=== PATIENT | female | born 1930 | race Caucasian/White ===

== ENCOUNTER 2018-09-10 17:50 | Emergency (ER) | payer MEDICARE, OTHER ==
[2018-09-10 18:10] LABS: ABSOLUTE EOSINOPHILS # (AUTO) 0.1 10^3/uL (0.0-0.6); ABSOLUTE LYMPHOCYTES (AUTO) 0.6 10^3/uL (0.5-4.7); ABSOLUTE NEUT (AUTO) 2.5 10^3/uL (1.7-8.2); BASOPHILS % (AUTO) 0.3 % (0-2); EOSINOPHILS % (AUTO) 2.8 % (0-6); HEMATOCRIT 33.5 % (36.0-47.0); HEMOGLOBIN 11.4 g/dL (12.0-15.5); LYMPHOCYTES % (AUTO) 17.9 % (13-45); MEAN CORPUSCULAR HEMOGLOBIN 32.5 pg (27.0-33.4); MEAN CORPUSCULAR HGB CONC 33.9 g/dL (32.0-36.0); MEAN CORPUSCULAR VOLUME 96 fl (80-97); MONOCYTES % (AUTO) 0.9 % (3-13); PLATELET COUNT 221 10^3/uL (150-450); RED BLOOD COUNT 3.51 10^6/uL (3.72-5.28); RED CELL DISTRIBUTION WIDTH 12.2 % (11.5-14.0); SEGMENTED NEUTROPHILS % (AUTO) 78.1 % (42-78); TOTAL CELLS COUNTED % (AUTO) 100 %; WHITE BLOOD COUNT 3.3 10^3/uL (4.0-10.5)
[2018-09-10 18:30] LABS: ALANINE AMINOTRANSFERASE 60 U/L (9-52); ALBUMIN 4.2 g/dL (3.5-5.0); ALKALINE PHOSPHATASE 86 U/L (38-126); ANION GAP 15 (5-19); ASPARTATE AMINO TRANSFERASE 251 U/L (14-36); BILIRUBIN,DIRECT 1.5 mg/dL (0.0-0.4); BILIRUBIN,TOTAL 1.8 mg/dL (0.2-1.3); BLOOD UREA NITROGEN 51 mg/dL (7-20); CALCIUM 9.4 mg/dL (8.4-10.2); CARBON DIOXIDE 27 mmol/L (22-30); CHLORIDE 100 mmol/L (98-107); GLUCOSE 114 mg/dL (75-110); LIPASE 523.1 U/L (23-300); POTASSIUM 4.6 mmol/L (3.6-5.0); SODIUM 141.9 mmol/L (137-145); TOTAL PROTEIN 7.6 g/dL (6.3-8.2)
[2018-09-10] MEDS ORDERED: RINGERS SOLUTION,LACTATED 1,000 ML IV ONE ×2 (18:40→22:59)
[2018-09-10 18:45] LABS: APPEARANCE,URINE CLEAR; BILIRUBIN,URINE NEGATIVE (NEGATIVE); COLOR,URINE YELLOW; GLUCOSE, URINE NEGATIVE (NEGATIVE); KETONES,URINE NEGATIVE (NEGATIVE); LEUKOCYTE ESTERASE,URINE NEGATIVE (NEGATIVE); NITRITE,URINE NEGATIVE (NEGATIVE); PROTEIN,URINE NEGATIVE (NEGATIVE); URINE SPECIFIC GRAVITY 1.009; UROBILINOGEN,URINE NEGATIVE mg/dL (<2.0)
--- NOTE | 2018-09-10 19:09 | RADIOLOGY REPORT (SQ) ---
EXAM DESCRIPTION: CHEST SINGLE VIEW COMPLETED DATE/TIME: 09/10/2018 7:00 pm REASON FOR STUDY: fever COMPARISON: 10/20/2013 EXAM PARAMETERS: NUMBER OF VIEWS: One view. TECHNIQUE: Single frontal radiographic view of the chest acquired. RADIATION DOSE: NA LIMITATIONS: None. FINDINGS: LUNGS AND PLEURA: No opacities, masses or pneumothorax. No pleural effusion. MEDIASTINUM AND HILAR STRUCTURES: No masses. Contour normal. HEART AND VASCULAR STRUCTURES: Borderline heart size. No pulmonary edema. BONES: No acute findings. HARDWARE: None in the chest. OTHER: No other significant finding. IMPRESSION: Borderline cardiomegaly without pulmonary edema. TECHNICAL DOCUMENTATION: JOB ID: [id number] [employer]- All Rights Reserved Reading location - IP/workstation name: [email or web address]
[2018-09-10 19:36] LABS: VENOUS BLOOD BASE EXCESS 0.7 mmol/L; VENOUS BLOOD HCO3 26.3 mmol/L (20-32); VENOUS BLOOD PCO2 46.3 mmHg (35-63); VENOUS BLOOD PH 7.37 (7.30-7.42)
[2018-09-10] MEDS ORDERED: ACETAMINOPHEN 325 MG TABLET PO ONE (19:55)
--- NOTE | 2018-09-10 19:57 | ER Document Report ---
ED General - General Chief Complaint: Nausea/Vomiting Stated Complaint: FEVER Time Seen by Provider: 09/10/18 18:36 Notes: Patient is an 87-year-old female with a past medical history of hypertension, hyperlipidemia, status post cholecystectomy in the remote past who presents with fever, rigors, nausea and vomiting. Apparently these symptoms started abruptly just prior to arrival. No history of similar symptoms in the past. She denies any abdominal pain. She has not seen her general doctor regarding today's concerns. Nothing improves or worsens her symptoms. She denies any shortness of breath, headache, neck pain but states that she has had some nonproductive cough. TRAVEL OUTSIDE OF THE [place] IN LAST 30 DAYS: No - Related Data Allergies/Adverse Reactions: Penicillins Allergy (Intermediate, Verified 10/05/13 16:07) hives and itch Past Medical History - General Information source: Patient - Social History Smoking Status: Never Smoker Chew tobacco use (# tins/day): No Frequency of alcohol use: None Drug Abuse: None Lives with: Family Family History: Reviewed & Not Pertinent Patient has suicidal ideation: No Patient has homicidal ideation: No - Past Medical History Cardiac Medical History: Reports: Hx Hypercholesterolemia, Hx Hypertension Denies: Hx Atrial Fibrillation, Hx Congestive Heart Failure, Hx Coronary Artery Disease, Hx Heart Attack, Hx Peripheral Vascular Disease, Hx Heart Murmur Pulmonary Medical History: Denies: Hx Asthma Neurological Medical History: Denies: Hx Cerebrovascular Accident, Hx Seizures Renal/ Medical History: Reports: Hx Kidney Stones - ESWL x 5, cysto with stone basket extraction 1982. Denies: Hx End Stage Renal Disease, Hx Peritoneal Dialysis Malignancy Medical History: Denies: Hx Leukemia GI Medical History: Reports: Hx Ulcer - Dx'ed . Denies: Hx Crohn's Disease, Hx Gastroesophageal Reflux Disease, Hx Hepatitis, Hx Hiatal Hernia, Hx Irritable Bowel, Hx Liver Failure, Hx Pancreatitis Musculoskeletal Medical History: Reports Hx Arthritis, Denies Hx Fibromyalgia, Denies Hx Muscular Dystrophy Psychiatric Medical History: Reports: Hx Depression Denies: Hx Bipolar Disorder, Hx Post Traumatic Stress Disorder, Hx Schizophrenia Traumatic Medical History: Denies: Hx Fractures Infectious Medical History: Denies: Hx Hepatitis, Hx HIV Past Surgical History: Reports: Hx Appendectomy - incidental with JERAMY BSO 1967, Hx Cholecystectomy - open martina , Hx Hysterectomy - JERAMY BSO 1967. Denies : Hx Bowel Surgery, Hx Section, Hx Colostomy, Hx Coronary Artery Bypass Graft, Hx Gastric Bypass Surgery, Hx Herniorrhaphy, Hx Mastectomy, Hx Open Heart Surgery, Hx Pacemaker, Hx Tonsillectomy, Hx Tubal Ligation - Immunizations Hx Diphtheria, Pertussis, Tetanus Vaccination: Yes - Tetanus in 08/2013 Hx Pneumococcal Vaccination: 11/16/08 Review of Systems - Review of Systems Notes: Constitutional: Positive for fever. HENT: Negative for sore throat. Eyes: Negative for visual changes. Cardiovascular: Negative for chest pain. Respiratory: Negative for shortness of breath.Positive for cough Gastrointestinal: Positive for nausea and vomiting Genitourinary: Negative for dysuria. Musculoskeletal: Negative for back pain. Skin: Negative for rash. Neurological: Negative for headaches, weakness or numbness. 10 point ROS negative except as marked above and in HPI. Physical Exam - Vital signs Vitals: Temp Resp BP Pulse Ox 99.5 F 23 H 119/43 L 93 09/10/18 18:02 09/10/18 18:02 09/10/18 18:02 09/10/18 18:02 Interpretation: Tachypneic Notes: PHYSICAL EXAMINATION: GENERAL: Elderly, in no acute distress HEAD: Atraumatic, normocephalic. EYES: Pupils equal round and reactive to light, extraocular movements intact, sclera anicteric, conjunctiva are normal. ENT: nares patent, oropharynx clear without exudates. Moderately dry mucous membranes. NECK: Normal range of motion, supple without lymphadenopathy LUNGS: Breath sounds clear to auscultation bilaterally and equal. No wheezes rales or rhonchi. HEART: Regular tachycardia without murmurs ABDOMEN: Soft, nontender, normoactive bowel sounds. No guarding, no rebound. No masses appreciated. EXTREMITIES: Normal range of motion, no pitting or edema. No cyanosis. NEUROLOGICAL: No focal neurological deficits. Moves all extremities spontaneously and on command. PSYCH: Normal mood, normal affect. SKIN: Warm, Dry, normal turgor, no rashes or lesions noted. Course - Re-evaluation Re-evalutation: 09/10/18 19:56 Patient presents with fever, rigors, nausea and vomiting which have currently resolved. Patient has no abdominal pain by complaint or on assessment. She currently denies any complaint of any kind other than still feeling somewhat chilled. Her initial laboratories are notable for mild LFT derangements, elevated lipase although the patient has had a cholecystectomy over 30 years ago making the probability of a choledocholithiasis or ascending cholangitis extremely unlikely. Given the patient's advanced age with history of fever and vomiting will proceed with a CT of the abdomen and pelvis. Will also obtain a flu swab as the patient has had a cough. Both her urinalysis and chest x-ray are clear. 09/10/18 22:[address] scan of the abdomen and pelvis does show dilation of the common bile duct with a mass within the common bile duct worrisome for possible stricture or malignancy. The patient continues to complain of chills as well as nausea but continues to deny abdominal pain. Given that she has a low white blood cell count has had a fever, will start ceftriaxone and metronidazole for empiric coverage. She has been made n.p.o. Ongoing fluid resuscitation. I have contacted [facility] for transfer as the patient will require ERCP. Results of the CT scan have been discussed with the family who is in agreement with transfer. 09/10/18 23:[address] I have spoken to Dr. Redmond from [facility] who has accepted the patient for transfer. - Vital Signs Vital signs: Temp Pulse Resp BP Pulse Ox 99.0 F 20 114/44 L 91 L 09/10/18 19:25 09/11/18 00:29 09/11/18 00:00 09/11/18 00:29 - Laboratory Result Diagrams: 09/10/18 17:35 09/10/18 17:35 Laboratory results interpreted by me: 09/10/18 09/10/18 09/10/18 17:35 17:35 18:33 WBC 3.3 L RBC 3.51 L Hgb 11.4 L Hct 33.5 L Seg Neutrophils % 78.1 H Monocytes % 0.9 L Absolute Monocytes 0.0 L BUN 51 H Creatinine 1.66 H Est GFR ( Amer) 36 L Est GFR (Non-Af Amer) 29 L Glucose 114 H Total Bilirubin 1.8 H Direct Bilirubin 1.5 H AST 251 H ALT 60 H Lipase 523.1 H Urine Blood SMALL H - Diagnostic Test Radiology reviewed: Reports reviewed Discharge - Discharge Clinical Impression: Common bile duct obstruction Sepsis Qualifiers: Sepsis type: sepsis due to unspecified organism Qualified Code(s): A41.9 - Sepsis, unspecified organism Nausea and vomiting Qualifiers: Vomiting type: unspecified Vomiting Intractability: non-intractable Qualified Code(s): R11.2 - Nausea with vomiting, unspecified Condition: Fair Disposition: [facility] Referrals: MIK ELLIOTT MD [Primary Care Provider] - Follow up as needed
[2018-09-10 20:59] LABS: A TYPE INFLUENZA AG NEGATIVE (NEGATIVE); B INFLUENZA AG NEGATIVE (NEGATIVE)
--- NOTE | 2018-09-10 21:16 | RADIOLOGY REPORT (SQ) ---
CT ABDOMEN PELVIS WITH IV CONTRAST HISTORY: Abdominal pain, vomiting. COMPARISON: None. TECHNIQUE: CT scan of the abdomen and pelvis with contrast. This exam was performed according to our departmental dose-optimization program, which includes automated exposure control, adjustment of the mA and/or kV according to patient size and/or use of iterative reconstruction technique. FINDINGS: Lung bases are clear. No pleural or pericardial effusions. Liver, gallbladder, spleen, pancreas, and adrenal glands are unremarkable. Status post cholecystectomy. Mild intrahepatic and CBD dilatation. There appears to be soft tissue density within the common bile duct. Bilateral renal cysts the largest measuring 10.9 cm and the left kidney. Bilateral chunky calcification in the kidneys with the largest measuring 1.3 cm in the right kidney and 1 cm in the left kidney. Prior hysterectomy is noted. No bowel obstruction. Appendix is not seen. No free air or free fluid. Normal caliber aorta with atherosclerotic calcifications. Mild wedging of T12 and L5 which may be degenerative or age-indeterminate compression fracture. IMPRESSION: Status post cholecystomy with mild intrahepatic and CBD dilatation. There appears to be soft tissue density within the CBD. Correlate with prior clinical history and consider direct visualization to exclude intraluminal mass or blood clot. Bilateral nonobstructing coarse calcifications in the kidneys. No obstructive uropathy. Mild wedging of T12 and L5 which may be degenerative or age-indeterminate compression fracture.
[2018-09-10] MEDS ORDERED: CEFTRIAXONE INJ 1000 MG VIAL IV ONE (21:45)
[2018-09-10] MEDS ORDERED: METRONIDAZOLE 500 MG/NS RTU 500 MG/100 ML RTUPB IV ONE (21:45)
[2018-09-11 01:13] VITALS: BP 104/40
== END 2018-09-11 01:19 | disposition short-term general hospital (02) ==
LOC: ER 17:50
DX: K83.1 Obstruction of bile duct (principal); A41.9 Sepsis, unspecified organism; R11.2 Nausea with vomiting, unspecified; R50.9 Fever, unspecified; I10 Essential (primary) hypertension; E78.2 Mixed hyperlipidemia; Z90.49 Acquired absence of other specified parts of digestive tract; Z88.0 Allergy status to penicillin
CPT/HCPCS: 99285; 96361; 96365; 96367; 36415; 87040; 83690; 85025; 87077; 80053; 81001; 87186; 82803; 83605; 87804; 71045; 74177; A9270; J0696; J7120

== ENCOUNTER 2019-10-08 12:39 | Emergency (ER) | payer MEDICARE, OTHER ==
--- NOTE | 2019-10-08 13:42 | ER Document Report ---
ED Fall - General Chief Complaint: Fall Stated Complaint: FALL, ELBOW PAIN Time Seen by Provider: 10/08/19 13:26 Primary Care Provider: ELIZABETH GODDARD PA-C [Primary Care Provider] - Follow up as needed Mode of Arrival: Medic Information source: Patient, Relative, Emergency Med Personnel, [facility] Records Notes: This 88-year-old female patient was brought to the emergency room by EMS after suffering a fall at home. The patient lives in a converted garage room with an adjacent restroom. The relative was upstairs when he heard her yell out, he came down to find her on the floor between a door frame with her head tucked. She reports she has hit her head. He noticed a deformity to the left elbow. There was no loss of consciousness. She does suffer occasional falls, despite using a walker. The patient did complain of pain to her right hip when palpated, but the family reports that is a chronic finding and may not indicate any new injury. The patient is on chronic pain management and takes Percocet 7.5 mg every 4 hours. When the patient returned from x-rays and CTs, she was interviewed and examined. She states she hit her left forehead, but it does not hurt at all. She states the only thing that hurts is her elbow. She was due to take her Percocet dose about 1 hour ago so her pain is very severe. TRAVEL OUTSIDE OF THE [place] IN LAST 30 DAYS: No - Related data Allergies/Adverse Reactions: Penicillins Allergy (Intermediate, Verified 10/05/13 16:07) hives and itch Home Medications: Losartan, Symproic, Citalopram, Furosemide, Vitamin D, Metoprolol, Annia, B-12, Percocet, Gabapentin Past Medical History - General Information source: Patient, Relative, Emergency Med Personnel, [facility] Records - Social History Smoking Status: Never Smoker Cigarette use (# per day): No Chew tobacco use (# tins/day): No Smoking Education Provided: No Frequency of alcohol use: None Drug Abuse: None Lives with: Family Family History: Reviewed & Not Pertinent Patient has suicidal ideation: No Patient has homicidal ideation: No - Past Medical History Cardiac Medical History: Reports: Hx Hypercholesterolemia, Hx Hypertension Renal/ Medical History: Reports: Hx Kidney Stones - ESWL x 5, cysto with stone basket extraction 1982 GI Medical History: Reports: Hx Ulcer - Dx'ed Musculoskeletal Medical History: Reports Hx Arthritis Psychiatric Medical History: Reports: Hx Depression Past Surgical History: Reports: Hx Appendectomy - incidental with JERAMY BSO 1967, Hx Cholecystectomy - open martina , Hx Hysterectomy, Hx Orthopedic Surgery - Bilateral total knees - Immunizations Hx Diphtheria, Pertussis, Tetanus Vaccination: Yes - Tetanus in 08/2013 Hx Pneumococcal Vaccination: 11/16/08 Review of Systems - Review of Systems Constitutional: No symptoms reported EENT: No symptoms reported Cardiovascular: No symptoms reported Respiratory: No symptoms reported Gastrointestinal: No symptoms reported - Family reports that she has not had constipation problems since she started taking the Symproic. Genitourinary: No symptoms reported Female Genitourinary: Post menopausal Musculoskeletal: Back pain, Joint pain Skin: No symptoms reported Hematologic/Lymphatic: No symptoms reported Neurological/Psychological: No symptoms reported Physical Exam - Vital signs Vitals: Temp Pulse Resp BP Pulse Ox 98.6 F 61 16 157/52 H 100 10/08/19 13:00 10/08/19 13:00 10/08/19 13:00 10/08/19 13:00 10/08/19 13:00 - General General appearance: Alert, Anxious In distress: Moderate - HEENT Head: Normocephalic, Atraumatic - No bruising, abrasions, or swelling or tenderness areas are found on the scalp. Hello Eyes: Normal Pupils: PERRL - Respiratory Respiratory status: No respiratory distress Breath sounds: Normal - Cardiovascular Rhythm: Regular Heart sounds: Normal auscultation Murmur: No - Abdominal Inspection: Normal Bowel sounds: Normal Tenderness: Nontender - Back Back: Tender - Patient has chronic back pain - Extremities General upper extremity: Other - Left elbow is grossly deformed and exquisitely tender. There is good capillary refill and sensation at the fingertips. General lower extremity: Other - Right lower leg has minor skin tears. - Neurological Neuro grossly intact: Yes - Psychological Associated symptoms: Normal affect, Normal mood - Skin Skin Temperature: Warm Skin Moisture: Dry Skin Color: Normal Course - Vital Signs Vital signs: Temp Pulse Resp BP Pulse Ox 98.6 F 64 16 175/60 H 96 10/08/19 13:00 10/08/19 16:10 10/08/19 15:47 10/08/19 15:55 10/08/19 15:53 - Diagnostic Test Radiology reviewed: Image reviewed, Reports reviewed - Left elbow x-ray shows a supracondylar fracture with shaft width medial displacement of the proximal humerus. - EKG Interpretation by Me EKG shows normal: Sinus rhythm, Berry, Intervals, QRS Complexes, ST-T Waves Rate: Normal - 65 Rhythm: Other - Accelerated junctional escape When compared to previous EKG there are: Changes noted - Consults Dr. Alba Time consulted: 16:43 Consulted provider: other - Will accept on hospitalist service with ortho consult - Transfer of Care Care transferred to following provider: Dr. Schneider Notes: 10/08/19 16:57 Patient is pending transfer to [facility]. She is presently waiting for a bed assignment. She may need additional pain medication prior to transport. Discharge - Discharge Clinical Impression: Supracondylar fracture of left humerus Qualifiers: Encounter type: initial encounter Fracture type: closed Qualified Code(s): S42.412A - Displaced simple supracondylar fracture without intercondylar frac ture of left humerus, initial encounter for closed fracture Condition: Stable Disposition: [facility] Referrals: ELIZABETH GODDARD PA-C [Primary Care Provider] - Follow up as needed
--- NOTE | 2019-10-08 13:45 | RADIOLOGY REPORT (SQ) ---
EXAM DESCRIPTION: ELBOW LEFT AP/LATERAL COMPLETED DATE/TIME: 10/08/2019 1:28 pm REASON FOR STUDY: fall COMPARISON: None. NUMBER OF VIEWS: Two views. TECHNIQUE: AP and lateral radiographic images acquired of the left elbow. LIMITATIONS: None. FINDINGS: MINERALIZATION: Osteopenia. BONES: There are oblique, comminuted fractures of the supracondylar left humerus and lateral epicondy le. JOINT: No effusion. SOFT TISSUES: No soft tissue swelling. No foreign body. OTHER: No other significant finding. IMPRESSION: There are oblique, comminuted fractures of the supracondylar left humerus and lateral ep icondyle. TECHNICAL DOCUMENTATION: JOB ID: [id number] [employer]- All Rights Reserved Reading location - IP/workstation name: [email or web address]
--- NOTE | 2019-10-08 13:46 | RADIOLOGY REPORT (SQ) ---
EXAM DESCRIPTION: TIBIA FIBULA RIGHT COMPLETED DATE/TIME: 10/08/2019 1:28 pm REASON FOR STUDY: pain s/p fall COMPARISON: None. NUMBER OF VIEWS: Two views. TECHNIQUE: Two radiographic images acquired of the right tibia and fibula to include the knee and an kle in at least one projection. LIMITATIONS: None. FINDINGS: MINERALIZATION: Osteopenia. BONES: No acute fracture or dislocation. No worrisome bone lesions. SOFT TISSUES: No obvious swelling or foreign body. OTHER: Partially imaged right knee total arthroplasty. IMPRESSION: Osteopenia. No fracture or dislocation of the right tibia or fibula. TECHNICAL DOCUMENTATION: JOB ID: [id number] [employer]- All Rights Reserved Reading location - IP/workstation name: [email or web address]
--- NOTE | 2019-10-08 13:48 | RADIOLOGY REPORT (SQ) ---
EXAM DESCRIPTION: PELVIS AP COMPLETED DATE/TIME: 10/08/2019 1:28 pm REASON FOR STUDY: pain s/p fall COMPARISON: None. NUMBER OF VIEWS: One view TECHNIQUE: AP Pelvis LIMITATIONS: None. FINDINGS: MINERALIZATION: Osteopenia. HIPS: No acute fracture or dislocation. No worrisome bone lesions. PELVIS AND SACRUM: No acute fracture or dislocation. No worrisome bone lesions. OTHER: Incidental note of a large calculus projecting over the inferior pole of the right kidney. IMPRESSION: 1. Osteopenia. No displaced fracture of the pelvis, sacrum, or bilateral proximal femur s. Please note that plain radiographs are significantly insensitive for fractures in the setting of osteopenia. Consider MRI to more sensitively evaluate if fracture is suspected. 2. Incidental note of right nephrolithiasis. COMMENT: Pelvic fractures are often occult on plain radiographs. If strong clinical suspicion for f racture, recommend CT or MR. TECHNICAL DOCUMENTATION: JOB ID: [id number] [employer]- All Rights Reserved Reading location - IP/workstation name: [email or web address]
--- NOTE | 2019-10-08 13:59 | RADIOLOGY REPORT (SQ) ---
EXAM DESCRIPTION: CT HEAD WITHOUT COMPLETED DATE/TIME: 10/08/2019 1:42 pm REASON FOR STUDY: fall COMPARISON: 10/19/2013 TECHNIQUE: Axial images acquired through the brain without intravenous contrast. Images reviewed wi th bone, brain and subdural windows. Additional sagittal and coronal reconstructions were generated. Images stored on PACS. All CT scanners at this facility use dose modulation, iterative reconstruction, and/or weight based d osing when appropriate to reduce radiation dose to as low as reasonably achievable (ALARA). [facility]: Dose Right [facility]: CareDose [facility]: Dose Right [facility]: Teradose 4D [facility]: Smart This Week In RADIATION DOSE: CT Rad equipment meets quality standard of care and radiation dose reduction techniq ues were employed. CTDIvol: 53.2 mGy. DLP: 1283 mGy-cm.mGy. LIMITATIONS: None. FINDINGS: VENTRICLES: Prominent. CEREBRUM: No masses. No hemorrhage. No midline shift. Areas of low density in the white matter mos t likely due to chronic micro-vascular ischemic change. No evidence for acute infarction. CEREBELLUM: No masses. No hemorrhage. No alteration of density. No evidence for acute infarction. EXTRAAXIAL SPACES: Age-related involutional change. No fluid collections. No masses. ORBITS AND GLOBE: No intra- or extraconal masses. Normal contour of globe without masses. CALVARIUM: No fracture. PARANASAL SINUSES: No fluid or mucosal thickening. SOFT TISSUES: No mass or hematoma. OTHER: No other significant finding. IMPRESSION: CHRONIC CHANGES OF ATROPHY AND MICROVASCULAR ISCHEMIA. NO ACUTE PROCESS. EVIDENCE OF ACUTE STROKE: NO. TECHNICAL DOCUMENTATION: JOB ID: [id number] Quality ID # [id number]: Final reports with documentation of one or more dose reduction techniques (e.g., Au tomated exposure control, adjustment of the mA and/or kV according to patient size, use of iterative reconstruction technique) 2010 [employer]- All Rights Reserved Reading location - IP/workstation name: [email or web address]
--- NOTE | 2019-10-08 14:02 | RADIOLOGY REPORT (SQ) ---
EXAM DESCRIPTION: CT CERVICAL SPINE WITHOUT COMPLETED DATE/TIME: 10/08/2019 1:42 pm REASON FOR STUDY: fall COMPARISON: None. TECHNIQUE: Axial images acquired through the cervical spine without intravenous contrast. Images re viewed with lung, soft tissue and bone windows. Reconstructed coronal and sagittal MPR images review ed. Images stored on PACS. All CT scanners at this facility use dose modulation, iterative reconstruction, and/or weight based d osing when appropriate to reduce radiation dose to as low as reasonably achievable (ALARA). [facility]: Dose Right [facility]: CareDose [facility]: Dose Right [facility]: Teradose 4D [facility]: Smart [employer] RADIATION DOSE: CT Rad equipment meets quality standard of care and radiation dose reduction techniq ues were employed. CTDIvol: 20.6 mGy. DLP: 420 mGy-cm. mGy. LIMITATIONS: None. FINDINGS: ALIGNMENT: Anatomic. MINERALIZATION: Osteopenia. VERTEBRAL BODIES: No fractures or dislocation. DISCS: Moderate multilevel disc degenerative disease and osteophytosis. FACETS, LATERAL MASSES, POSTERIOR ELEMENTS: No fractures. No dislocation. No acute findings. HARDWARE: None in the spine. VISUALIZED RIBS: No fractures. LUNG APICES AND SOFT TISSUES: No significant or acute findings. OTHER: No other significant finding. IMPRESSION: No fracture or static subluxation of the cervical spine. TECHNICAL DOCUMENTATION: JOB ID: [id number] Quality ID # [id number]: Final reports with documentation of one or more dose reduction techniques (e.g., Au tomated exposure control, adjustment of the mA and/or kV according to patient size, use of iterative reconstruction technique) 2010 [employer]- All Rights Reserved Reading location - IP/workstation name: [email or web address]
[2019-10-08] MEDS ORDERED: MORPHINE SULFATE 10 MG/ML INJ IV ONE ×3 (14:03→21:02)
--- NOTE | 2019-10-08 17:19 | EKG REPORT ---
SEVERITY:- ABNORMAL ECG - SINUS RHYTHM FIRST DEGREE AVB : Confirmed by: Tio French MD 08-Oct-2019 17:18:57
[2019-10-08 21:11] VITALS: BP 135/51
== END 2019-10-08 21:11 | disposition short-term general hospital (02) ==
LOC: ER 12:39
DX: S42.412A Displaced simple supracondylar fracture without intercondylar fracture of left humerus, initial encounter for closed fracture (principal); S09.90XA Unspecified injury of head, initial encounter; W18.30XA Fall on same level, unspecified, initial encounter; Y92.009 Unspecified place in unspecified non-institutional (private) residence as the place of occurrence of the external cause; Z88.0 Allergy status to penicillin; E78.00 Pure hypercholesterolemia, unspecified; I10 Essential (primary) hypertension; Z87.442 Personal history of urinary calculi; Z90.710 Acquired absence of both cervix and uterus
CPT/HCPCS: 93005; 73070; 72170; 73590; 70450; 72125; 93010; J2270; 51702; 96374; 96376; 99285

== ENCOUNTER → 2020-04-30 | Outpatient (CLI) | payer MEDICARE, OTHER ==
[2020-04-30 11:07] LABS: ANION GAP 7 (5-19); BLOOD UREA NITROGEN 80 mg/dL (7-20); CALCIUM 9.6 mg/dL (8.4-10.2); CARBON DIOXIDE 32 mmol/L (22-30); CHLORIDE 96 mmol/L (98-107); GLUCOSE 97 mg/dL (75-110); POTASSIUM 4.6 mmol/L (3.6-5.0)
== END ==
LOC: OD 09:52
PROVIDERS: ATTEND Internal Medicine
DX: E87.6 Hypokalemia (principal)
CPT/HCPCS: 36415; 80048

== ENCOUNTER → 2020-06-01 | Outpatient (CLI) | payer MEDICARE, OTHER ==
[2020-06-01 10:28] LABS: ANION GAP 9 (5-19); BLOOD UREA NITROGEN 86 mg/dL (7-20); CALCIUM 9.6 mg/dL (8.4-10.2); CARBON DIOXIDE 31 mmol/L (22-30); CHLORIDE 95 mmol/L (98-107); GLUCOSE 97 mg/dL (75-110); POTASSIUM 4.1 mmol/L (3.6-5.0)
== END ==
LOC: OD 09:10
PROVIDERS: ATTEND Internal Medicine
DX: E87.5 Hyperkalemia (principal)
CPT/HCPCS: 36415; 80048

== ENCOUNTER 2020-07-13 12:23 | Emergency (ER) | payer MEDICARE, OTHER ==
--- NOTE | 2020-07-13 13:03 | ER Document Report ---
ED Medical Screen (RME) - General Chief Complaint: Altered Mental Status Stated Complaint: RIGHT SIDE PAIN Time Seen by Provider: 07/13/20 12:59 Primary Care Provider: JANES AGEE MD [Primary Care Provider] - Follow up as needed Mode of Arrival: Medic Information source: Relative Notes: 89-year-old female presented to ED for altered mental status confusion severe right flank and abdominal pain swelling to the right side of the abdomen. She lives in [facility]. Her daughter states that the nurse at [facility] called her several times today due to her declining status. They called the doctor and he told him to bring her right over to the emergency room. Daughter states that she was diagnosed with stage IV kidney disease and has never had a nephrology consult or exam. She states the patient has been declining and been in severe pain and no one is coming in taking care of this. She states she does not necessarily want dialysis but she wants to know what can be done to make the patient comfortable. She states she will leave her phone number and name on the bedside table for the doctor to converse with her. I have greeted and performed a rapid initial assessment of this patient. A comprehensive ED assessment and evaluation of the patient, analysis of test results and completion of medical decision making process will be conducted by an additional ED providers. TRAVEL OUTSIDE OF THE [place] IN LAST 30 DAYS: No - Related Data Allergies/Adverse Reactions: Penicillins Allergy (Intermediate, Verified 07/13/20 12:58) hives and itch Home Medications: Citalopram. Losartan. Melatonin. Eliquis. Lasix. Metoprolol. Senna. Tylenol. Vitamin D#. Docusate. Potassium Chloride. Gabapentin. Ativan. GlycoLax. Metolazone Past Medical History - Past Medical History Cardiac Medical History: Reports: Hx Hypercholesterolemia, Hx Hypertension Renal/ Medical History: Reports: Hx Kidney Stones - ESWL x 5, cysto with stone basket extraction 1982 GI Medical History: Reports: Hx Ulcer - Dx'ed Musculoskeltal Medical History: Reports Hx Arthritis Psychiatric Medical History: Reports: Hx Depression Past Surgical History: Reports: Hx Appendectomy - incidental with JERAMY BSO 1967, Hx Cholecystectomy - open martina , Hx Hysterectomy, Hx Orthopedic Surgery - Bilateral total knees - Immunizations Hx Diphtheria, Pertussis, Tetanus Vaccination: Yes - Tetanus in 08/2013 Physical Exam - Vital signs Vitals: Temp Pulse Resp BP Pulse Ox 98.6 F 58 L 16 138/48 H 95 07/13/20 12:57 07/13/20 12:57 07/13/20 12:57 07/13/20 12:57 07/13/20 12:57 Course - Vital Signs Vital signs: Temp Pulse Resp BP Pulse Ox 98.6 F 58 L 16 138/48 H 95 07/13/20 12:57 07/13/20 12:57 07/13/20 12:57 07/13/20 12:57 07/13/20 12:57 Doctor's Discharge - Discharge Referrals: JANES AGEE MD [Primary Care Provider] - Follow up as needed
[2020-07-13 13:30] LABS: APPEARANCE,URINE CLEAR; BILIRUBIN,URINE NEGATIVE (NEGATIVE); COLOR,URINE STRAW; GLUCOSE, URINE NEGATIVE (NEGATIVE); KETONES,URINE NEGATIVE (NEGATIVE); LEUKOCYTE ESTERASE,URINE TRACE (NEGATIVE); NITRITE,URINE NEGATIVE (NEGATIVE); PROTEIN,URINE NEGATIVE (NEGATIVE); URINE SPECIFIC GRAVITY 1.009; UROBILINOGEN,URINE NEGATIVE mg/dL (<2.0)
[2020-07-13 13:41] LABS: ABSOLUTE EOSINOPHILS # (AUTO) 0.3 10^3/uL (0.0-0.6); ABSOLUTE LYMPHOCYTES (AUTO) 1.8 10^3/uL (0.5-4.7); ABSOLUTE MONOCYTES (AUTO) 0.6 10^3/uL (0.1-1.4); ABSOLUTE NEUT (AUTO) 3.7 10^3/uL (1.7-8.2); BASOPHILS % (AUTO) 0.6 % (0-2); EOSINOPHILS % (AUTO) 5.3 % (0-6); HEMATOCRIT 33.1 % (36.0-47.0); HEMOGLOBIN 11.4 g/dL (12.0-15.5); MEAN CORPUSCULAR HEMOGLOBIN 31.5 pg (27.0-33.4); MEAN CORPUSCULAR HGB CONC 34.5 g/dL (32.0-36.0); MEAN CORPUSCULAR VOLUME 92 fl (80-97); MONOCYTES % (AUTO) 9.3 % (3-13); PLATELET COUNT 192 10^3/uL (150-450); RED BLOOD COUNT 3.62 10^6/uL (3.72-5.28); RED CELL DISTRIBUTION WIDTH 12.3 % (11.5-14.0); SEGMENTED NEUTROPHILS % (AUTO) 56.8 % (42-78); TOTAL CELLS COUNTED % (AUTO) 100 %; WHITE BLOOD COUNT 6.5 10^3/uL (4.0-10.5)
--- NOTE | 2020-07-13 13:49 | ER Document Report ---
Entered by SANDY DARNELL SCRIBE 07/13/20 1324 Acting as scribe for:LILIAM SUTTON MD ED General - General Chief Complaint: Altered Mental Status Stated Complaint: RIGHT SIDE PAIN Time Seen by Provider: 07/13/20 12:59 Primary Care Provider: JANES AGEE MD [Primary Care Provider] - Follow up in 3-5 days Mode of Arrival: Medic Information source: Patient Cannot obtain history due to: Other - poor historian Notes: This 89 year old female patient presents to the emergency department today with complaints of "an episode where she shook all over". Patient reports this happened prior to arrival today. She reports back pain which is chronic but "this radiates up to her shoulders and down her legs" which concerned her. Patient is a poor historian so obtaining meaningful history is difficult. TRAVEL OUTSIDE OF THE [place] IN LAST 30 DAYS: No - Related Data Allergies/Adverse Reactions: Penicillins Allergy (Intermediate, Verified 07/13/20 12:58) hives and itch Home Medications: Citalopram. Losartan. Melatonin. Eliquis. Lasix. Metoprolol. Senna. Tylenol. Vitamin D#. Docusate. Potassium Chloride. Gabapentin. Ativan. GlycoLax. Metolazone Past Medical History - General Information source: Relative - Social History Smoking Status: Never Smoker Cigarette use (# per day): No Frequency of alcohol use: None Drug Abuse: None Family History: Reviewed & Not Pertinent - Past Medical History Cardiac Medical History: Reports: Hx Hypercholesterolemia, Hx Hypertension Renal/ Medical History: Reports: Hx Kidney Stones - ESWL x 5, cysto with stone basket extraction 1982 GI Medical History: Reports: Hx Ulcer - Dx'ed Musculoskeletal Medical History: Reports Hx Arthritis Psychiatric Medical History: Reports: Hx Depression Past Surgical History: Reports: Hx Appendectomy - incidental with JERAMY BSO 1967, Hx Cholecystectomy - open martina , Hx Hysterectomy, Hx Orthopedic Surgery - Bilateral total knees - Immunizations Hx Diphtheria, Pertussis, Tetanus Vaccination: Yes - Tetanus in 08/2013 Hx Pneumococcal Vaccination: 11/16/08 Review of Systems - Review of Systems Constitutional: See HPI, Other - "shook all over" EENT: No symptoms reported Cardiovascular: No symptoms reported Respiratory: No symptoms reported Gastrointestinal: No symptoms reported Genitourinary: No symptoms reported Female Genitourinary: No symptoms reported Musculoskeletal: See HPI, Back pain Skin: No symptoms reported Hematologic/Lymphatic: No symptoms reported Neurological/Psychological: No symptoms reported -: Yes All other systems reviewed and negative Physical Exam - Vital signs Vitals: Temp Pulse Resp BP Pulse Ox 98.6 F 58 L 16 138/48 H 95 07/13/20 12:57 07/13/20 12:57 07/13/20 12:57 07/13/20 12:57 07/13/20 12:57 - Notes Notes: Physical Exam: General: Alert, obese, appears age appropriate. HEENT: Normocephalic. Atraumatic. PERRL. Extraocular movements intact. Oropharynx clear. Neck: Supple. Non-tender. Respiratory: No respiratory distress. Clear and equal breath sounds bilaterally. Cardiovascular: Regular rate and rhythm. Abdominal: Obese. Non-tender. No distension. Normal Bowel Sounds. Back: Tenderness with palpation across the lumbar and sacral spine. Extremities: Moves all four extremities. Upper extremities: Normal inspection. Normal ROM. Lower extremities: Normal inspection. No edema. Normal ROM. Neurological: Normal cognition. AAOx4. Normal speech. Psychological: Normal affect. Normal Mood. Skin: Warm. Dry. Normal color. Course - Re-evaluation Re-evalutation: 07/13/20 16:10 The patient's records indicate that she was placed on Eliquis postop when she broke her elbow in September 2019. She appears to continue to be on the Eliquis and I am unsure the reason why. The daughter did not know why she was on the medication either and had commented on the patient being on other medications that were no longer needed. She also reports that she was told the patient had kidney failure and she has been trying to get her seen by a load manager for several months. I discussed the patient's work-up and findings including the chronic L1 compression fraction with retropulsed fragments with the patient's daughter Delia at [phone] I told her that I would place recommendations in the discharge instruction for nephrology follow-up and to ask her primary care provider to review her medications to determine the necessity of the Eliquis at this time. - Vital Signs Vital signs: Temp Pulse Resp BP Pulse Ox 98.6 F 58 L 14 120/42 L 96 07/13/20 12:57 07/13/20 12:57 07/13/20 15:01 07/13/20 14:52 07/13/20 15:01 - Laboratory Result Diagrams: 07/13/20 13:29 07/13/20 13:29 Laboratory results interpreted by me: 07/13/20 07/13/20 07/13/20 12:40 13:29 13:29 RBC 3.62 L Hgb 11.4 L Hct 33.1 L Sodium 134.9 L Potassium 3.5 L Chloride 94 L Carbon Dioxide 32 H BUN 97 H Creatinine 1.73 H Est GFR ( Amer) 34 L Est GFR (MDRD) Non-Af 28 L Urine Blood MODERATE H Ur Leukocyte Esterase TRACE H - Diagnostic Test Radiology reviewed: Image reviewed, Reports reviewed - Noncontrast CT scan abdomen and pelvis compared to 09/12/2018 shows previously seen renal calcifications and large renal cysts. There is a new near complete compression of L1 with 7 mm of retropulsed fragments. Discharge - Discharge Clinical Impression: Episode of shaking Chronic low back pain Qualifiers: Back pain laterality: bilateral Sciatica presence: unspecified whether sciatica present Qualified Code(s): M54.5 - Low back pain Compression fracture of L1 lumbar vertebra Qualifiers: Encounter type: initial encounter Qualified Code(s): S32.010A - Wedge compression fracture of first lumbar vertebra, initial encounter for closed fracture Condition: Stable Disposition: HOME, SELF-CARE Additional Instructions: There was no obvious explanation for the shaking episode that you described today. Your daughter reports that you frequently have shaking in the lower extremities. There were also no findings of new or acute problems causing the pain to your back, right shoulder, and right side that has been going on for several months. Your renal function shows a fairly stable creatinine, but an elevating BUN over the past several months. Reviewing your medication records, it appears that you are still on Eliquis 9 months after your elbow surgery. Please have your primary care provider review your lab work and medications to see if you should be evaluated by an load manager for your renal function, and to see if you need to continue taking Eliquis. RETURN TO THE EMERGENCY ROOM IF ANY NEW OR WORSENING SYMPTOMS. Referrals: JANES AGEE MD [Primary Care Provider] - Follow up in 3-5 days I personally performed the services described in the documentation, reviewed and edited the documentation which was dictated to the scribe in my presence, and it accurately records my words and actions.
[2020-07-13 14:10] LABS: ALBUMIN 3.9 g/dL (3.5-5.0); ALKALINE PHOSPHATASE 80 U/L (38-126); ANION GAP 9 (5-19); ASPARTATE AMINO TRANSFERASE 30 U/L (14-36); BILIRUBIN,DIRECT 0.3 mg/dL (0.0-0.4); BILIRUBIN,TOTAL 0.6 mg/dL (0.2-1.3); BLOOD UREA NITROGEN 97 mg/dL (7-20); CALCIUM 9.1 mg/dL (8.4-10.2); CARBON DIOXIDE 32 mmol/L (22-30); CHLORIDE 94 mmol/L (98-107); CREATINE KINASE 73 U/L (30-135); GLUCOSE 110 mg/dL (75-110); POTASSIUM 3.5 mmol/L (3.6-5.0); TOTAL PROTEIN 6.8 g/dL (6.3-8.2)
--- NOTE | 2020-07-13 14:47 | RADIOLOGY REPORT (SQ) ---
EXAM DESCRIPTION: CT ABD/PELVIS NO ORAL OR IV IMAGES COMPLETED DATE/TIME: 07/13/2020 1:59 pm REASON FOR STUDY: Severe right flank pain, right abdomen swollen COMPARISON: CT of the abdomen and pelvis from 10/19/[address] of the abdomen and pelvis with 2017. TECHNIQUE: CT scan of the abdomen and pelvis performed without intravenous or oral contrast. Images reviewed with lung, soft tissue, and bone windows. Reconstructed coronal and sagittal MPR images revi ewed. All images stored on PACS. All CT scanners at this facility use dose modulation, iterative reconstruction, and/or weight based d osing when appropriate to reduce radiation dose to as low as reasonably achievable (ALARA). [facility]: Dose Right [facility]: CareDose [facility]: Dose Right [facility]: Teradose 4D [facility]: Smart [employer] RADIATION DOSE: CT Rad equipment meets quality standard of care and radiation dose reduction techniq ues were employed. CTDIvol: 14.8 mGy. DLP: 766 mGy-cm. LIMITATIONS: None. FINDINGS: LOWER CHEST: Cardiomegaly and bibasilar atelectasis. NON-CONTRASTED LIVER, SPLEEN, ADRENALS: Evaluation is limited due to the absence of intravenous contr ast. There is no evidence of hepatic steatosis. The spleen is normal in size. There is no adrenal mass. PANCREAS: No acute gross abnormality of the pancreas. GALLBLADDER: The gallbladder is surgically absent. There is pneumobilia in the left hepatic lobe. RIGHT KIDNEY AND URETER: Evaluation is limited due to the absence of intravenous contrast. There is a partially exophytic cyst in the upper pole of the kidney that measures 3.7 x 2.8 cm. There are brook iceal calculi in the lower pole of the kidney that measure 12 mm in diameter. There is no hydronephr osis, hydroureter or ureterolithiasis. LEFT KIDNEY AND URETER: Evaluation is limited due to the absence of intravenous contrast. There is a n exophytic cyst that arises from the interpolar portion of the kidney and measures 7.4 x 10.7 cm. T here are several caliceal calculi in the lower pole of the kidney that measure up to 12 mm in diamete r. There is no hydronephrosis, hydroureter or ureterolithiasis. AORTA AND RETROPERITONEUM: Atherosclerotic calcification of the abdominal aorta. There is no retrope ritoneal adenopathy, hemorrhage or mass. BOWEL AND PERITONEAL CAVITY: Colonic diverticulosis without diverticulitis. There is no bowel obstru ction, bowel wall thickening or pericolonic/ perienteric inflammation. APPENDIX: Unable to identify the appendix. There is no pericecal inflammation PELVIS, BLADDER, AND ABDOMINAL WALL:There is diastasis of the rectus sheath. The uterus is surgicall y absent. There is no urinary bladder calculus. BONES: Age-indeterminate vertebral plana deformity of the L1 vertebral body associated with 7 mm retr opulsion. OTHER: No other finding. IMPRESSION: 1. No acute intra-abdominal abnormality. 2. Age indeterminate vertebral plana deformity of the L1 vertebral body associate with 7 mm retropuls ion that has developed since 09/10/2018. 3. Bilateral nephrolithiasis without hydronephrosis or hydroureter. COMMENT: Quality ID # [id number]: Final reports with documentation of one or more dose reduction techniques (e.g., Automated exposure control, adjustment of the mA and/or kV according to patient size, use of iterative reconstruction technique) TECHNICAL DOCUMENTATION: JOB ID: [id number] 2010 [employer]- All Rights Reserved Reading location - IP/workstation name: [email or web address]
[2020-07-13 16:50] VITALS: BP 150/55
== END 2020-07-13 17:25 | disposition home or self-care (01) ==
LOC: ER 12:23
DX: S32.010A Wedge compression fracture of first lumbar vertebra, initial encounter for closed fracture (principal); R25.1 Tremor, unspecified; M54.5 Low back pain; M54.9 Dorsalgia, unspecified; G89.29 Other chronic pain; R41.82 Altered mental status, unspecified; M25.511 Pain in right shoulder; M25.512 Pain in left shoulder; M79.604 Pain in right leg; M79.605 Pain in left leg; X58.XXXA Exposure to other specified factors, initial encounter; Z88.0 Allergy status to penicillin; Z79.899 Other long term (current) drug therapy; Z79.01 Long term (current) use of anticoagulants; I10 Essential (primary) hypertension; E66.9 Obesity, unspecified
CPT/HCPCS: 36415; 74176; 80053; 81001; 82550; 83605; 83690; 84484; 85025; 87040; 87086; 87088; 87186; 99284

== ENCOUNTER 2020-07-18 17:09 | Emergency (ER) | payer MEDICARE, OTHER ==
--- NOTE | 2020-07-18 17:50 | ER Document Report ---
ED Medical Screen (RME) - General Chief Complaint: Flank Pain Stated Complaint: FLANK PAIN Time Seen by Provider: 07/18/20 17:46 Primary Care Provider: JANES AGEE MD [Primary Care Provider] - Follow up as needed Notes: PT SEEN Jun BY DR SUTTON Entered by SANDY DARNELL SCRIBE 07/13/20 1324 Acting as scribe for:LILIAM SUTTON MD ED General - General Chief Complaint: Altered Mental Status Stated Complaint: RIGHT SIDE PAIN Time Seen by Provider: 07/13/20 12:59 Primary Care Provider: JANES AGEE MD [Primary Care Provider] - Follow up in 3-5 days Mode of Arrival: Medic Information source: Patient Cannot obtain history due to: Other - poor historian Notes: This 89 year old female patient presents to the emergency department today with complaints of "an episode where she shook all over". Patient reports this happened prior to arrival today. She reports back pain which is chronic but "this radiates up to her shoulders and down her legs" which concerned her. Patient is a poor historian so obtaining meaningful history is difficult. TRAVEL OUTSIDE OF THE [place] IN LAST 30 DAYS: No - Related Data Allergies/Adverse Reactions: Penicillins Allergy (Intermediate, Verified 07/13/20 12:58) hives and itch Home Medications: Citalopram. Losartan. Melatonin. Eliquis. Lasix. Metoprolol. Senna. Tylenol. Vitamin D#. Docusate. Potassium Chloride. Gabapentin. Ativan. GlycoLax. Metolazone Past Medical History - General Information source: Relative - Social History Smoking Status: Never Smoker Cigarette use (# per day): No Frequency of alcohol use: None Drug Abuse: None Family History: Reviewed & Not Pertinent - Past Medical History Cardiac Medical History: Reports: Hx Hypercholesterolemia, Hx Hypertension Renal/ Medical History: Reports: Hx Kidney Stones - ESWL x 5, cysto with stone basket extraction 1982 GI Medical History: Reports: Hx Ulcer - Dx'ed Musculoskeletal Medical History: Reports Hx Arthritis Psychiatric Medical History: Reports: Hx Depression Past Surgical History: Reports: Hx Appendectomy - incidental with JERAMY BSO 1967, Hx Cholecystectomy - open martina , Hx Hysterectomy, Hx Orthopedic Surgery - Bilateral total knees MY NOTES TODAY 89-year-old female [place] arrives by EMS after she received 150 mL of normal saline prior to arrival because of low blood pressure. She also was given 50 mg of fentanyl because of 10 out of 10 right flank pain. She now has 1 out of 10 right flank pain. For the last 2 days she has had urinary frequency and urinary urgency but no hematuria. She is also had fever for 2 days. 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 Jessica here at this hospital. Patient has history of kidney stones x5 with a cystoscopy in 1982. After being seen by Dr. Sutton a few days ago she was found to have right kidney cyst. This cyst was 3.7 x 2.8 cm as well as a kidney stone 12 mm in the right kidney but no hydronephrosis on 13 July. She also has a history of right kidney cancer. TRAVEL OUTSIDE OF THE [place] IN LAST 30 DAYS: No - HPI Onset: Just prior to arrival - Related Data Allergies/Adverse Reactions: Penicillins Allergy (Intermediate, Verified 07/13/20 12:58) hives and itch Past Medical History - Past Medical History Cardiac Medical History: Reports: Hx Hypercholesterolemia, Hx Hypertension Renal/ Medical History: Reports: Hx Kidney Stones - ESWL x 5, cysto with stone basket extraction 1982 GI Medical History: Reports: Hx Ulcer - Dx'ed Musculoskeltal Medical History: Reports Hx Arthritis Psychiatric Medical History: Reports: Hx Depression Past Surgical History: Reports: Hx Appendectomy - incidental with JERAMY BSO 1967, Hx Cholecystectomy - open martina , Hx Hysterectomy, Hx Orthopedic Surgery - Bilateral total knees - Immunizations Hx Diphtheria, Pertussis, Tetanus Vaccination: Yes - Tetanus in 08/2013 Physical Exam - Vital signs Vitals: Temp 99.5 F 07/18/20 17:09 Interpretation: Hypotensive - HEENT Head: Normocephalic, Atraumatic Eyes: Normal Pupils: PERRL Sinus: Normal Nasal: Normal Mouth/Lips: Normal Mucous membranes: Normal Pharynx: Normal Neck: Normal - Respiratory Respiratory status: No respiratory distress Chest status: Nontender Breath sounds: Normal Chest palpation: Normal - Cardiovascular Rhythm: Regular Heart sounds: Normal auscultation Murmur: No - Abdominal Inspection: Normal Distension: No distension Bowel sounds: Normal Tenderness: Tender - right flank pain/cva pain - Rectal Tenderness: No - Genitourinary Speculum exam: Normal - Back Back: Normal - Extremities General upper extremity: Normal inspection General lower extremity: Normal inspection - Neurological Neuro grossly intact: Yes Cognition: Normal Orientation: AAOx4 Charlotte Coma Scale Eye Opening: Spontaneous Saji Coma Scale Verbal: Oriented [place] Coma Scale Motor: Obeys Commands Charlotte Coma Scale Total: 15 Speech: Normal Cranial nerves: Normal - except very [place] Motor strength normal: LUE, RUE, LLE, RLE Sensory: Normal - Psychological Associated symptoms: Normal affect - Skin Skin Temperature: Warm Skin Moisture: Dry Course - Vital Signs Vital signs: Temp Pulse Resp BP Pulse Ox 99.5 F 62 12 154/61 H 96 07/18/20 17:37 07/18/20 17:37 07/18/20 20:01 07/18/20 20:01 07/18/20 20:01 - Laboratory Result Diagrams: 07/18/20 16:43 07/18/20 16:43 Laboratory results interpreted by me: 07/18/20 07/18/20 07/18/20 16:43 16:43 18:50 Hgb 11.9 L Hct 34.8 L Sodium 135.2 L Chloride 93 L BUN 85 H Creatinine 1.68 H Est GFR ( Amer) 35 L Est GFR (MDRD) Non-Af 29 L Glucose 122 H Urine Blood MODERATE H - Diagnostic Test Radiology reviewed: Reports reviewed - CT scan as per radiologist reveals bilateral kidney stones but nothing acute. Also patient has bilateral kidney cysts with atherosclerotic vascular disease and also chronic intrahepatic biliary ductal dilation. Patient has new L1 compression with spinal stenosis and also cardiomegaly. Critical Care Note - Critical Care Note Comments: I discussed the findings with patient in room #12 who appeared to understand as well as her daughter by telephone and she appeared to understand as well. Doctor's Discharge - Discharge Clinical Impression: Acute right flank pain Nontraumatic compression fracture of L1 vertebra Qualifiers: Encounter type: initial encounter Qualified Code(s): M48.56XA - Collapsed vertebra, not elsewhere classified, lumbar region, initial encounter for fracture Condition: Good Disposition: HOME, SELF-CARE Additional Instructions: Follow-up with personal doctor return to ER if symptoms persist or worsen take medicines as directed encourage fluids and avoid bending twisting or lifting usi ng your lower back because you have a problem with your back bone. Prescriptions: Diclofenac Sodium 100 gm TP BID PRN #100 gel..gram. PRN Reason: Chlorzoxazone [Parafon Forte Dsc 500 Mg Tablet] 500 mg PO BID #14 tablet Referrals: JANES AGEE MD [Primary Care Provider] - Follow up as needed
[2020-07-18] MEDS ORDERED: NORMAL SALINE 1000 ML 1,000 ML IV ONE (18:11)
[2020-07-18 18:32] LABS: ABSOLUTE EOSINOPHILS # (AUTO) 0.3 10^3/uL (0.0-0.6); ABSOLUTE LYMPHOCYTES (AUTO) 2.3 10^3/uL (0.5-4.7); ABSOLUTE MONOCYTES (AUTO) 0.6 10^3/uL (0.1-1.4); ABSOLUTE NEUT (AUTO) 3.4 10^3/uL (1.7-8.2); BASOPHILS % (AUTO) 0.3 % (0-2); EOSINOPHILS % (AUTO) 4.8 % (0-6); HEMATOCRIT 34.8 % (36.0-47.0); HEMOGLOBIN 11.9 g/dL (12.0-15.5); LYMPHOCYTES % (AUTO) 34.4 % (13-45); MEAN CORPUSCULAR HEMOGLOBIN 31.2 pg (27.0-33.4); MEAN CORPUSCULAR VOLUME 92 fl (80-97); MONOCYTES % (AUTO) 9.2 % (3-13); PLATELET COUNT 200 10^3/uL (150-450); RED BLOOD COUNT 3.81 10^6/uL (3.72-5.28); RED CELL DISTRIBUTION WIDTH 12.5 % (11.5-14.0); SEGMENTED NEUTROPHILS % (AUTO) 51.3 % (42-78); TOTAL CELLS COUNTED % (AUTO) 100 %; WHITE BLOOD COUNT 6.6 10^3/uL (4.0-10.5)
[2020-07-18 18:46] LABS: ALBUMIN 4.1 g/dL (3.5-5.0); ALKALINE PHOSPHATASE 78 U/L (38-126); ANION GAP 13 (5-19); ASPARTATE AMINO TRANSFERASE 32 U/L (14-36); BILIRUBIN,DIRECT 0.4 mg/dL (0.0-0.4); BILIRUBIN,TOTAL 0.7 mg/dL (0.2-1.3); BLOOD UREA NITROGEN 85 mg/dL (7-20); CALCIUM 9.5 mg/dL (8.4-10.2); CARBON DIOXIDE 29 mmol/L (22-30); CHLORIDE 93 mmol/L (98-107); GLUCOSE 122 mg/dL (75-110); POTASSIUM 3.7 mmol/L (3.6-5.0); TOTAL PROTEIN 7.1 g/dL (6.3-8.2)
[2020-07-18] MEDS ORDERED: FENTANYL CITRATE INJ/PF 100 MCG/2 ML AMPUL IV ONE (19:41)
[2020-07-18 20:06] LABS: APPEARANCE,URINE CLEAR; BILIRUBIN,URINE NEGATIVE (NEGATIVE); COLOR,URINE STRAW; GLUCOSE, URINE NEGATIVE (NEGATIVE); KETONES,URINE NEGATIVE (NEGATIVE); LEUKOCYTE ESTERASE,URINE NEGATIVE (NEGATIVE); NITRITE,URINE NEGATIVE (NEGATIVE); PROTEIN,URINE NEGATIVE (NEGATIVE); URINE SPECIFIC GRAVITY 1.009; UROBILINOGEN,URINE NEGATIVE mg/dL (<2.0)
[2020-07-18 20:11] LABS: ADD MANUAL MICROSCOPIC YES; WBC,URINE 0-1 /HPF
[2020-07-18 20:12] LABS: BACTERIA,URINE TRACE /HPF
--- NOTE | 2020-07-18 20:31 | RADIOLOGY REPORT (SQ) ---
EXAM DESCRIPTION: CT ABDOMEN PELVIS WITHOUT IV CONTRAST COMPLETED DATE/TME: 07/18/2020 18:13 CLINICAL HISTORY: 89 years, Female, r flank acute pain COMPARISON: CT from 07/13/2020 and 09/10/2018. TECHNIQUE: Axial images without IV contrast. Sagittal coronal reconstruction. Images stored on PACS. All CT scanners at this facility use dose modulation, iterative reconstruction, and/or weight based dosing when appropriate to reduce radiation dose to as low as reasonably achievable (ALARA). FINDINGS: [id number] cardiomegaly mainly enlargement of the left atrium. Lung bases are unremarkable. Previous cholecystectomy. Minimal chronic intrahepatic biliary dilatation current study demonstrates air in the nondependent left hepatic lobe biliary system. Air was not present 2018. Common bile duct not dilated. Spleen, pancreas, adrenal glands para-aortic regions are unremarkable. Atrophic left kidney. Minimally hypertrophic right kidney.. Large nonobstructing stone in the lower pole of the right kidney. Several mildly large stones in lower pole of the left kidney. No acute hydronephrosis or renal swelling. Mild dilatation of the right renal pelvis unchanged since 2019. Massive chronic left midpole renal cyst. Smaller right upper pole right renal cyst unchanged since 2018. Heavily atherosclerotic aorta and its branches including superior mesenteric artery and left renal artery No suspicious acute bowel or peritoneal abnormalities. Scattered upper abdominal colonic diverticulosis.. Severe compression, vertebroplasty of L1 with retropulsion and stenosis. New findings since 2018. Severe central stenosis at L4-5 and less prominently at other levels of the lumbar spine. CT of the pelvis demonstrates mildly distended urinary bladder. Absent uterus. Distal colon is unremarkable. No adenopathy or free fluid. No suspicious bony lesions. IMPRESSION: 1. Bilateral nonobstructing large kidney stones. No acute hydronephrosis. 2. Atrophic left kidney and mildly hypertrophic right kidney. 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 Prominent atherosclerosis also of the superior mesenteric artery. 3. Bilateral renal cysts massive on the left and unchanged. 4. Cholecystectomy. Mild chronic intrahepatic biliary dilatation. Current CT demonstrates air in the biliary system which was not seen in 2018. Previous ERCP? Suggest clinical correlation. 5. Significant compression of L1 vertebral body with retropulsion new since 2018 associated with spinal stenosis. Severe stenosis L4-5 and less severe at other levels. 6. Cardiomegaly mainly enlargement of the left atrium.
[2020-07-18 21:56] VITALS: BP 135/53
== END 2020-07-18 21:58 | disposition home or self-care (01) ==
LOC: ER 17:09
DX: M48.56XA Collapsed vertebra, not elsewhere classified, lumbar region, initial encounter for fracture (principal); R10.9 Unspecified abdominal pain; R41.82 Altered mental status, unspecified; X58.XXXA Exposure to other specified factors, initial encounter; Y93.9 Activity, unspecified; Y92.129 Unspecified place in nursing home as the place of occurrence of the external cause; E78.00 Pure hypercholesterolemia, unspecified; I10 Essential (primary) hypertension; Z88.0 Allergy status to penicillin; Z87.442 Personal history of urinary calculi; Z90.49 Acquired absence of other specified parts of digestive tract; Z90.710 Acquired absence of both cervix and uterus
CPT/HCPCS: 99285; 96361; 96374; 36415; 87040; 87086; 85025; 80053; 81001; 74176; J3010; J7030

== ENCOUNTER → 2020-10-23 | Outpatient (CLI) | payer MEDICARE, OTHER ==
[2020-10-23 11:19] LABS: HEMATOCRIT 34.7 % (36.0-47.0); HEMOGLOBIN 11.7 g/dL (12.0-15.5); MEAN CORPUSCULAR HEMOGLOBIN 30.7 pg (27.0-33.4); MEAN CORPUSCULAR HGB CONC 33.7 g/dL (32.0-36.0); MEAN CORPUSCULAR VOLUME 91 fl (80-97); PLATELET COUNT 251 10^3/uL (150-450); RED BLOOD COUNT 3.81 10^6/uL (3.72-5.28); RED CELL DISTRIBUTION WIDTH 12.5 % (11.5-14.0); WHITE BLOOD COUNT 6.8 10^3/uL (4.0-10.5)
[2020-10-23 11:36] LABS: ALBUMIN 4.3 g/dL (3.5-5.0); ANION GAP 10 (5-19); BLOOD UREA NITROGEN 94 mg/dL (7-20); CALCIUM 10.1 mg/dL (8.4-10.2); CARBON DIOXIDE 35 mmol/L (22-30); CHLORIDE 91 mmol/L (98-107); GLUCOSE 133 mg/dL (75-110); PHOSPHORUS 5.4 mg/dL (2.5-4.5); POTASSIUM 4.6 mmol/L (3.6-5.0)
[2020-10-23 11:59] LABS: APPEARANCE,URINE CLEAR; BILIRUBIN,URINE NEGATIVE (NEGATIVE); COLOR,URINE YELLOW; GLUCOSE, URINE NEGATIVE (NEGATIVE); KETONES,URINE NEGATIVE (NEGATIVE); LEUKOCYTE ESTERASE,URINE LARGE (NEGATIVE); NITRITE,URINE NEGATIVE (NEGATIVE); PROTEIN,URINE NEGATIVE (NEGATIVE); UROBILINOGEN,URINE NEGATIVE mg/dL (<2.0)
== END ==
LOC: OD 10:40
PROVIDERS: ATTEND Internal Medicine Nephrology
DX: N39.0 Urinary tract infection, site not specified (principal); N18.4 Chronic kidney disease, stage 4 (severe)
CPT/HCPCS: 36415; 80069; 81001; 83970; 85027; 87086

== ENCOUNTER 2020-11-14 11:18 | Emergency (ER) | payer MEDICARE, OTHER ==
[2020-11-14] MEDS ORDERED: DIPHENHYDRAMINE HCL 50 MG/ML VIAL IV ONE (11:36)
[2020-11-14] MEDS ORDERED: FAMOTIDINE INJ/PF 20 MG/2 ML SDV IV ONE (11:36)
[2020-11-14 12:24] LABS: ABSOLUTE EOSINOPHILS # (AUTO) 0.4 10^3/uL (0.0-0.6); ABSOLUTE MONOCYTES (AUTO) 0.5 10^3/uL (0.1-1.4); ABSOLUTE NEUT (AUTO) 3.7 10^3/uL (1.7-8.2); BASOPHILS % (AUTO) 0.4 % (0-2); EOSINOPHILS % (AUTO) 5.3 % (0-6); HEMATOCRIT 31.7 % (36.0-47.0); MEAN CORPUSCULAR HEMOGLOBIN 31.2 pg (27.0-33.4); MEAN CORPUSCULAR HGB CONC 34.7 g/dL (32.0-36.0); MEAN CORPUSCULAR VOLUME 90 fl (80-97); MONOCYTES % (AUTO) 8.1 % (3-13); PLATELET COUNT 224 10^3/uL (150-450); RED BLOOD COUNT 3.54 10^6/uL (3.72-5.28); RED CELL DISTRIBUTION WIDTH 12.4 % (11.5-14.0); SEGMENTED NEUTROPHILS % (AUTO) 55.2 % (42-78); TOTAL CELLS COUNTED % (AUTO) 100 %; WHITE BLOOD COUNT 6.6 10^3/uL (4.0-10.5)
[2020-11-14 12:26] LABS: APPEARANCE,URINE CLEAR; BILIRUBIN,URINE NEGATIVE (NEGATIVE); COLOR,URINE STRAW; GLUCOSE, URINE NEGATIVE (NEGATIVE); KETONES,URINE NEGATIVE (NEGATIVE); LEUKOCYTE ESTERASE,URINE LARGE (NEGATIVE); NITRITE,URINE NEGATIVE (NEGATIVE); PROTEIN,URINE NEGATIVE (NEGATIVE); URINE SPECIFIC GRAVITY 1.005; UROBILINOGEN,URINE NEGATIVE mg/dL (<2.0)
[2020-11-14 12:43] LABS: ALKALINE PHOSPHATASE 93 U/L (38-126); ANION GAP 9 (5-19); ASPARTATE AMINO TRANSFERASE 41 U/L (14-36); BILIRUBIN,DIRECT 0.4 mg/dL (0.0-0.4); BILIRUBIN,TOTAL 0.7 mg/dL (0.2-1.3); BLOOD UREA NITROGEN 95 mg/dL (7-20); CALCIUM 9.6 mg/dL (8.4-10.2); CARBON DIOXIDE 29 mmol/L (22-30); CHLORIDE 97 mmol/L (98-107); CREATINE KINASE 53 U/L (30-135); GLUCOSE 109 mg/dL (75-110); POTASSIUM 3.3 mmol/L (3.6-5.0); TOTAL PROTEIN 7.4 g/dL (6.3-8.2)
--- NOTE | 2020-11-14 13:44 | ER Document Report ---
Entered by ORLY CLARKE SCRIBE 11/14/20 1125 Acting as scribe for:LILIAM SUTTON MD ED General - General Stated Complaint: CHEST PAIN/RASH Time Seen by Provider: 11/14/20 11:23 Primary Care Provider: RAH HINOJOSA MD [Primary Care Provider] - Follow up as needed Mode of Arrival: Medic Information source: Patient, Emergency Med Personnel Notes: This 89 year old female patient brought in by EMS from [facility] presents to the ED today with complaints of chronic itching to the lower extremities, but states that she now has itching to her arms, face, and head as well. Patient states that the itching keeps her up at night and she has to rub them together or on the sheet. Per nursing, EMS reports that the patient stopped taking Celexa x1 week ago, but she was only taking it intermittently initially. Patient did receive Ativan at the facility prior to arrival. Denies any chest pain. TRAVEL OUTSIDE OF THE [place] IN LAST 30 DAYS: No - Related Data Allergies/Adverse Reactions: Penicillins Allergy (Intermediate, Verified 07/13/20 12:58) hives and itch Past Medical History - General Information source: [facility] Records - Social History Smoking Status: Never Smoker Cigarette use (# per day): No Chew tobacco use (# tins/day): No Smoking Education Provided: No Frequency of alcohol use: None Drug Abuse: None Family History: Reviewed & Not Pertinent - Past Medical History Cardiac Medical History: Reports: Hx Hypercholesterolemia, Hx Hypertension Renal/ Medical History: Reports: Hx Kidney Stones - ESWL x 5, cysto with stone basket extraction 1982 GI Medical History: Reports: Hx Ulcer - Dx'ed Musculoskeletal Medical History: Reports Hx Arthritis Psychiatric Medical History: Reports: Hx Depression Past Surgical History: Reports: Hx Appendectomy - incidental with JERAMY BSO 1967, Hx Cholecystectomy - open martina , Hx Hysterectomy, Hx Orthopedic Surgery - Bilateral total knees - Immunizations Hx Diphtheria, Pertussis, Tetanus Vaccination: Yes - Tetanus in 08/2013 Hx Pneumococcal Vaccination: 11/16/08 Review of Systems - Review of Systems Constitutional: No symptoms reported EENT: No symptoms reported Cardiovascular: See HPI Respiratory: No symptoms reported Gastrointestinal: No symptoms reported Genitourinary: No symptoms reported Female Genitourinary: No symptoms reported Musculoskeletal: No symptoms reported Skin: See HPI Hematologic/Lymphatic: No symptoms reported Neurological/Psychological: No symptoms reported -: Yes All other systems reviewed and negative Physical Exam - Vital signs Vitals: Temp Pulse Resp BP Pulse Ox 98.3 F 57 L 17 140/54 H 97 11/14/20 11:35 11/14/20 11:35 11/14/20 11:35 11/14/20 11:35 11/14/20 11:35 - General General appearance: Alert, Anxious In distress: None - HEENT Head: Normocephalic, Atraumatic Eyes: Normal Extraocular movements intact: Yes Pupils: PERRL Neck: Normal, Supple - Respiratory Respiratory status: No respiratory distress Chest status: Nontender Breath sounds: Normal Chest palpation: Normal - Cardiovascular Rhythm: Regular Heart sounds: Normal auscultation Murmur: No - Abdominal Inspection: Obese Distension: No distension Bowel sounds: Normal Tenderness: Nontender - Abdomen soft Organomegaly: No organomegaly - Back Back: Normal, Nontender - Extremities General upper extremity: Normal inspection General lower extremity: Normal inspection. No: Edema - Neurological Neuro grossly intact: Yes - Psychological Associated symptoms: Anxious - Skin Notes: Dry, scaling, age-appropriate appearing skin. There is no rash or urticaria seen on upper/lower extremities, face, or head as patient reported. Course - Re-evaluation Re-evalutation: 11/14/20 13:59 Patient reports the itching is much better since receiving the Benadryl and Pepcid. She does have fairly dry skin and I advised her that she should be using moisturizing lotions on her arms and legs every day. - Vital Signs Vital signs: Temp Pulse Resp BP Pulse Ox 98.3 F 57 L 14 140/54 H 97 11/14/20 11:35 11/14/20 11:35 11/14/20 13:00 11/14/20 11:35 11/14/20 13:00 - Laboratory Results Result Diagrams: 11/14/20 11:52 11/14/20 11:52 Laboratory Results Interpreted: 11/14/20 11/14/20 11/14/20 11:52 11:52 11:52 RBC 3.54 L Hgb 11.0 L Hct 31.7 L Sodium 134.9 L Potassium 3.3 L Chloride 97 L BUN 95 H Creatinine 1.51 H Est GFR ( Amer) 39 L Est GFR (MDRD) Non-Af 33 L AST 41 H Urine Blood SMALL H Ur Leukocyte Esterase LARGE H Critical Laboratory Results Reviewed: No Critical Results - Radiology Results Critical Radiology Results Reviewed: No Critical Results - EKG Interpretation by Me EKG shows normal: Sinus rhythm, [place], Intervals, QRS Complexes, ST-T Waves Rate: Normal - 57 Voltage: Consistent with LVH 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 This is due to germs growing in the bladder. This is a common problem. This infection usually responds quickly to antibiotics. Your antibiotic should be taken exactly as prescribed. Drink plenty of fluids -- three to four quarts a day. Occasionally, a bladder anesthetic will be prescribed to help stop the feeling of urgency until the antibiotic has a chance to clear the infection. This may cause your urine to be dark orange. Certain urine infections require a culture. If the doctor obtained a culture, the results will be back in two days. You should call to see if a change in treatment is needed. A repeat urinalysis after you finish treatment is often recommended. The physician will let you know if further testing is required. Call the doctor if you develop fever, chills, flank pain, inability to urinate, or blood in the urine. Itching, NonSpecific: Itching can be a symptom of both skin problems or internal diseases. Most of the time, itching is simply a nuisance, and doesn't mean there's any serious underlying problem. If there are no symptoms of an ongoing medical condition, we simply prescribe anti-itch medicine to relieve symptoms. Itching can be due to skin allergic reactions such as poison oak, poison leandro, dermatitis, or jewelry allergy. It can be caused by dry skin, or skin that's been stretched by , weight gain, or water retention. It can be caused by skin parasites such as scabies, or by bug bites. Itching can be caused by internal allergy, such as food allergy, or medication allergy, or intestinal parasites. It can accompany liver disease. Apply a non-perfumed ointment like Vaseline, Eucerin lotion, Nutraderm, or Lubriderm if your skin is dry. Apply frequently, especially after bathing. Benadryl, Hydroxyzine, Doxepin and other anti-itch medicines can help control the urge to scratch. Hydrocortisone cream, or a prescription steroid cream or ointment can help reduce inflammation. Avoid hot baths or showers. Use as little soap as possible while bathing. D on't scrub your skin unless the doctor has specifically told you to do this. Call the doctor or return if there are signs of infection, fever, pain, or if symptoms become severe. Hypokalemia: You have an abnormally decreased level of serum potassium. Hypokalemia may cause weakness, fatigue, or heart rhythm abnormalities. Sometimes there are no symptoms at all. Usually, low serum potassium is due to taking diuretics (water pills). It can also be due to excessive vomiting or diarrhea. If no obvious cause is evident, further evaluation will be necessary. Treatment is usually oral potassium supplements. Take these exactly as prescribed. You may also want to select foods which are naturally high in potassium -- fruits (such as bananas, cantaloupe, grapes, oranges, prunes, tomatoes), fresh vegetables (potatoes, spinach, beans, peas), orange or tomato juice, tomato pasta sauce, milk, fish (halibut, tuna, salmon, hadley) A follow-up blood test is usually performed to assure that the potassium is returning to normal. Call the physician if you suffer severe weakness, muscle twitching or cramping, palpitations (pounding or irregular heartbeat), or any other new or alarming symptoms. Take the medication as prescribed for your urinary tract infection. Be sure to drink plenty of fluids throughout the day in the evening every day. Increase potassium in your diet, such as eating bananas every day. Take Benadryl and Pepcid for your itching as needed. Those are both [id number] medications. Use moisturizing lotions on your arms and legs at least once a day to prevent drying of the skin. Follow-up with your primary care provider if not improving. RETURN TO THE EMERGENCY ROOM IF ANY NEW OR WORSENING SYMPTOMS. Prescriptions: Nitrofurantoin Monohyd/M-Cryst [Macrobid 100 mg Capsule] 100 mg PO BID #10 cap Referrals: RAH HINOJOSA MD [Primary Care Provider] - Follow up as needed I personally performed the services described in the documentation, reviewed and edited the documentation which was dictated to the scribe in my presence, and it accurately records my words and actions.
[2020-11-14] MEDS ORDERED: NITROFURANTOIN MONOHYD/M-CRYST 100 MG CAPSULE PO ONE (13:59)
[2020-11-14 15:59] VITALS: BP 124/64
--- NOTE | 2020-11-14 17:55 | EKG REPORT ---
SEVERITY:- ABNORMAL ECG - SINUS BRADYCARDIA FIRST DEGREE AV BLOCK PROBABLE LVH WITH SECONDARY REPOL ABNRM : Confirmed by: Juan Pablo Cooley MD 14-Nov-2020 17:55:12
== END 2020-11-14 15:58 | disposition home or self-care (01) ==
LOC: ER 11:18
DX: L85.3 Xerosis cutis (principal); L29.9 Pruritus, unspecified; N39.0 Urinary tract infection, site not specified; R31.9 Hematuria, unspecified; R07.9 Chest pain, unspecified; E78.00 Pure hypercholesterolemia, unspecified; I10 Essential (primary) hypertension; Z87.442 Personal history of urinary calculi
CPT/HCPCS: 93005; 99284; 96374; 96375; 36415; 87086; 82550; 85025; 87088; 80053; 81001; 84484; 87186; 93010; J1200; S0028; A9270; J8499

== ENCOUNTER 2020-11-18 20:45 | Emergency (ER) | payer MEDICARE ==
[2020-11-18] MEDS ORDERED: ACETAMINOPHEN 325 MG TABLET PO ONE (21:45)
--- NOTE | 2020-11-18 21:46 | ER Document Report ---
ED Medical Screen (RME) - General Chief Complaint: Altered Mental Status Stated Complaint: ALTERED MENTAL STATUS Time Seen by Provider: 11/18/20 21:35 Primary Care Provider: RAH HINOJOSA MD [Primary Care Provider] - Follow up as needed Notes: Patient is an 89-year-old female who presents emergency department with altered mental status. Patient is a [facility] home patient. This morning she ended up being confused. She reports that she was confused and wanted some pain medicine, but, "they would not give me my pain medicine." Patient denies any symptoms other than generalized pain. Exam: Alert and oriented, but hard of hearing. I have greeted and performed a rapid initial assessment of this patient. A comprehensive ED assessment and evaluation of the patient, analysis of test results and completion of medical decision making process will be conducted by an additional ED providers. TRAVEL OUTSIDE OF THE [place] IN LAST 30 DAYS: No - Related Data Allergies/Adverse Reactions: Penicillins Allergy (Intermediate, Verified 07/13/20 12:58) hives and itch Past Medical History - Past Medical History Cardiac Medical History: Reports: Hx Hypercholesterolemia, Hx Hypertension Renal/ Medical History: Reports: Hx Kidney Stones - ESWL x 5, cysto with stone basket extraction 1982 GI Medical History: Reports: Hx Ulcer - Dx'ed Musculoskeltal Medical History: Reports Hx Arthritis Psychiatric Medical History: Reports: Hx Depression Past Surgical History: Reports: Hx Appendectomy - incidental with JERAMY BSO 1967, Hx Cholecystectomy - open martina , Hx Hysterectomy, Hx Orthopedic Surgery - Bilateral total knees - Immunizations Hx Diphtheria, Pertussis, Tetanus Vaccination: Yes - Tetanus in 08/2013 Physical Exam - Vital signs Vitals: Temp Pulse Resp BP Pulse Ox 98.3 F 62 16 120/56 L 97 11/18/20 21:24 11/18/20 21:24 11/18/20 21:24 11/18/20 21:24 11/18/20 21:24 Course - Vital Signs Vital signs: Temp Pulse Resp BP Pulse Ox 98.3 F 62 16 120/56 L 97 11/18/20 21:24 11/18/20 21:24 11/18/20 21:24 11/18/20 21:24 11/18/20 21:24 Doctor's Discharge - Discharge Referrals: RAH HINOJOSA MD [Primary Care Provider] - Follow up as needed
--- NOTE | 2020-11-18 22:33 | RADIOLOGY REPORT (SQ) ---
CT head without contrast on 11/18/2020 at 9:50 PM CLINICAL INDICATION: Altered mental status TECHNIQUE: Multiple axial images are obtained throughout the head without the administration of contrast. This exam was performed according to our departmental dose-optimization program, which includes automated exposure control, adjustment of the mA and/or kV according to patient size and/or use of iterative reconstruction technique. Total DLP is 910.77 mGy*cm. COMPARISON: 10/08/2019 FINDINGS: There is generalized cerebral atrophy. There is no hydrocephalus. There is no CT evidence of acute infarct. There is no hemorrhage. There are no abnormal extra-axial fluid collections. There is no mass, mass effect or midline shift. No bony abnormality is noted. IMPRESSION: Atrophy with no acute intracranial abnormality.
--- NOTE | 2020-11-18 22:36 | RADIOLOGY REPORT (SQ) ---
EXAM DESCRIPTION: CHEST SINGLE VIEW 11/18/2020 9:36 PM [employer] CLINICAL HISTORY: 89 years Female, eval pneumonia; ; COMPARISON: Prior study from 09/10/2018 FINDINGS: Single view is obtained. Cardiac and mediastinal contours are stable. Lungs are clear. No pleural effusion or pneumothorax. IMPRESSION: No acute disease.
[2020-11-18 22:47] LABS: ABSOLUTE EOSINOPHILS # (AUTO) 0.3 10^3/uL (0.0-0.6); ABSOLUTE LYMPHOCYTES (AUTO) 2.1 10^3/uL (0.5-4.7); ABSOLUTE MONOCYTES (AUTO) 0.7 10^3/uL (0.1-1.4); PLATELET COUNT 254 10^3/uL (150-450); RED CELL DISTRIBUTION WIDTH 12.5 % (11.5-14.0); TOTAL CELLS COUNTED % (AUTO) 100 %
[2020-11-18 23:02] LABS: ABSOLUTE NEUT (AUTO) 4.7 10^3/uL (1.7-8.2); BASOPHILS % (AUTO) 0.4 % (0-2); EOSINOPHILS % (AUTO) 3.8 % (0-6); HEMATOCRIT 35.2 % (36.0-47.0); HEMOGLOBIN 12.4 g/dL (12.0-15.5); LYMPHOCYTES % (AUTO) 26.5 % (13-45); MEAN CORPUSCULAR HEMOGLOBIN 31.6 pg (27.0-33.4); MEAN CORPUSCULAR HGB CONC 35.1 g/dL (32.0-36.0); MEAN CORPUSCULAR VOLUME 90 fl (80-97); RED BLOOD COUNT 3.91 10^6/uL (3.72-5.28); SEGMENTED NEUTROPHILS % (AUTO) 60.3 % (42-78); WHITE BLOOD COUNT 7.8 10^3/uL (4.0-10.5)
[2020-11-18 23:05] LABS: ALBUMIN 4.3 g/dL (3.5-5.0); ALKALINE PHOSPHATASE 107 U/L (38-126); ANION GAP 9 (5-19); ASPARTATE AMINO TRANSFERASE 34 U/L (14-36); BILIRUBIN,DIRECT 0.2 mg/dL (0.0-0.4); BILIRUBIN,TOTAL 0.6 mg/dL (0.2-1.3); BLOOD UREA NITROGEN 84 mg/dL (7-20); CALCIUM 10.1 mg/dL (8.4-10.2); CARBON DIOXIDE 33 mmol/L (22-30); CHLORIDE 92 mmol/L (98-107); GLUCOSE 131 mg/dL (75-110); POTASSIUM 3.1 mmol/L (3.6-5.0); TOTAL PROTEIN 7.8 g/dL (6.3-8.2)
[2020-11-19] MEDS ORDERED: ACETAMINOPHEN 325 MG TABLET ONE (00:29)
--- NOTE | 2020-11-19 03:59 | ER Document Report ---
ED General - General Chief Complaint: Altered Mental Status Stated Complaint: ALTERED MENTAL STATUS Time Seen by Provider: 11/18/20 21:35 Primary Care Provider: RAH HINOJOSA MD [Primary Care Provider] - Follow up as needed Mode of Arrival: Medic Information source: Patient Notes: 89-year-old female presented to ED for complaint of altered mental status tonight at [facility] home. The group home stated she was confused and refused some of her medicines. She states that she just did not want to take her other medicines unless she was given her pain medicine. She states she always has generalized pain. Patient has a history of kidney disease kidney stones high blood pressure cholesterol arthritis to depression. She is living at [facility]. I did speak with her daughter who stated she just was told that she was confused. She states she is a DO NOT RESUSCITATE. She states she does not get dialysis and is not going to get dialysis. She states she does make urine once in a while. We did get a UA which did not show a UTI at this time. She did have a low potassium elevated BUN/creatinine. These were discussed with Dr. Scott and she will be treated with 40 mg of potassium before sending her back to the group home. She will also be given a dose of her Ultram which is her medicine that she takes at the [facility]. We will send a copy of her labs with her back to the [facility]. Constitutional: Negative for fever. HENT: Negative for sore throat. Eyes: Negative for visual changes. Cardiovascular: Negative for chest pain. Respiratory: Negative for shortness of breath. Gastrointestinal: Negative for abdominal pain, vomiting or diarrhea. Genitourinary: Negative for dysuria. Musculoskeletal: Negative for back pain. Skin: Negative for rash. Neurological: Patient is normally weak. She is 89 years old in a group home. Her main complaint is generalized pain. She was sent from the group home for altered mental status and confusion 10 point ROS negative except as marked above and in HPI. VITAL SIGNS: Within normal limits. GENERAL: No acute distress, non-toxic appearance. HEAD: Normal with no signs of head trauma. EYES: PERRLA, EOMI, conjunctiva normal, no discharge. EARS: Patient is normally hard of hearing and she is hard of hearing NOSE: Normal. THROAT: Oropharynx is normal. CHEST: Clear breath sounds bilaterally. No wheezes, rales, or rhonchi. CARDIAC: Regular rate and rhythm. S1 and S2, without murmurs, gallops, or rubs. VASCULAR: No Edema. Peripheral pulses normal and equal in all extremities. ABDOMEN: Normal and soft with no tenderness, no masses or pulsatile masses. GASTROINTESTINAL: Bowel sounds normal GENITOURINARY: Normal, No tenderness LYMPATHTIC: No lymphadenopathy noted. MUSCULOSKELETAL: Good range of motion of all major joints. Extremities without clubbing, cyanosis or edema. NEUROLOGICAL: Alert and oriented x 3. No focal sensory or strength deficits. Speech normal. Follows commands appropriately. PSYCHIATRIC: Normal Affect, judgement and mood. SKIN: Normal appearance with no rashes or lesions. TRAVEL OUTSIDE OF THE [place] IN LAST 30 DAYS: No - HPI Onset: This evening Onset/Duration: Intermittent Quality of pain: Achy Severity: Severe Pain Level: 5 - Chronic Associated symptoms: Weakness - Her normal, Other - Patient was seen for altered mental status according to the group home and generalized pain Exacerbated by: Denies Relieved by: Denies Similar symptoms previously: Yes Recently seen / treated by doctor: Yes - Related Data Allergies/Adverse Reactions: Penicillins Allergy (Intermediate, Verified 07/13/20 12:58) hives and itch Past Medical History - General Information source: Patient - Social History Smoking Status: Never Smoker Frequency of alcohol use: None Drug Abuse: None Lives with: Care Home Family History: Reviewed & Not Pertinent Patient has suicidal ideation: No Patient has homicidal ideation: No - Past Medical History Cardiac Medical History: Reports: Hx Hypercholesterolemia, Hx Hypertension Pulmonary Medical History: Reports: None EENT Medical History: Reports: None Neurological Medical History: Reports: None Endocrine Medical History: Reports: None Renal/ Medical History: Reports: Hx Kidney Stones - ESWL x 5, cysto with stone basket extraction 1982, Hx Renal Insufficiency Malignancy Medical History: Reports: None GI Medical History: Reports: Hx Ulcer - Dx'ed Musculoskeletal Medical History: Reports Hx Arthritis, Reports Hx Musculoskeleta l Deformity, Reports Hx Musculoskeletal Trauma Skin Medical History: Reports None Psychiatric Medical History: Reports: Hx Depression Traumatic Medical History: Reports: Hx Fractures Infectious Medical History: Reports: None Past Surgical History: Reports: Hx Appendectomy - incidental with JERAMY BSO 1967, Hx Cholecystectomy - open martina , Hx Hysterectomy, Hx Kidney (Renal Surgery), Hx Orthopedic Surgery - Bilateral total knees - Immunizations Hx Diphtheria, Pertussis, Tetanus Vaccination: Yes - Tetanus in 08/2013 Hx Pneumococcal Vaccination: 11/16/08 Physical Exam - Vital signs Vitals: Temp Pulse Resp BP Pulse Ox 98.3 F 62 16 120/56 L 97 11/18/20 21:24 11/18/20 21:24 11/18/20 21:24 11/18/20 21:24 11/18/20 21:24 Course - Re-evaluation Re-evalutation: 11/19/20 06:24 Have spoken with patient's daughter given her report lab results. I will treat the patient with 40 mg of potassium and her Ultram. We will be sending her back to the group home. - Vital Signs Vital signs: Temp Pulse Resp BP Pulse Ox 98.1 F 58 L 18 117/57 L 98 11/19/20 06:52 11/19/20 06:52 11/19/20 06:52 11/19/20 06:52 11/19/20 06:52 - Laboratory Results Result Diagrams: 11/18/20 22:34 11/18/20 22:34 Laboratory Results Interpreted: 11/18/20 11/18/20 11/19/20 22:34 22:34 04:03 Hct 35.2 L Sodium 133.9 L Potassium 3.1 L Chloride 92 L Carbon Dioxide 33 H BUN 84 H Creatinine 1.67 H Est GFR ( Amer) 35 L Est GFR (MDRD) Non-Af 29 L Glucose 131 H Urine Blood MODERATE H Ur Leukocyte Esterase TRACE H Critical Laboratory Results Reviewed: No Critical Results - Discussed all labs with Dr. 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 She is able to answer questions appropriately but is mildly confused. This is her normal state according to her daughter. Hypokalemia You have an abnormally decreased level of serum potassium. Hypokalemia may cause weakness, fatigue, or heart rhythm abnormalities. Sometimes there are no symptoms at all. Usually, low serum potassium is due to taking diuretics (water pills). It can also be due to excessive vomiting or diarrhea. If no obvious cause is evident, further evaluation will be necessary. Treatment is usually oral potassium supplements. Take these exactly as prescribed. You may also want to select foods which are naturally high in potassium -- fruits (such as bananas, cantaloupe, grapes, oranges, prunes, tomatoes), fresh vegetables (potatoes, spinach, beans, peas), orange or tomato juice, tomato pasta sauce, milk, fish (halibut, tuna, salmon, hadley) A follow-up blood test is usually performed to assure that the potassium is returning to normal. Call the physician if you suffer severe weakness, muscle twitching or cramping, palpitations (pounding or irregular heartbeat), or any other new or alarming symptoms. Complaint of her chronic pain. She does have according to her records from [place], a order for tramadol. We will have given her a dose of the tramadol while in the emergency room as well as 40 mEq of potassium for her hypokalemia. She will need to continue all of her routine orders when she returns to [facility]. I have spoken with her daughter and given her a update of the patient's Send a copy of her lab results with her [facility] assisted living facility. FOLLOW-UP CARE: If you have been referred to a physician for follow-up care, call the physicians office for an appointment as you were instructed or within the next two days. If you experience worsening or a significant change in your symptoms, notify the physician immediately or return to the Emergency Department at any time for re-evaluation. Referrals: RAH HINOJOSA MD [Primary Care Provider] - Follow up as needed
[2020-11-19 04:23] LABS: APPEARANCE,URINE SLIGHTLY-CLOUDY; BILIRUBIN,URINE NEGATIVE (NEGATIVE); COLOR,URINE YELLOW; GLUCOSE, URINE NEGATIVE (NEGATIVE); KETONES,URINE NEGATIVE (NEGATIVE); LEUKOCYTE ESTERASE,URINE TRACE (NEGATIVE); NITRITE,URINE NEGATIVE (NEGATIVE); PROTEIN,URINE NEGATIVE (NEGATIVE); URINE SPECIFIC GRAVITY 1.013; UROBILINOGEN,URINE NEGATIVE mg/dL (<2.0)
[2020-11-19] MEDS ORDERED: POTASSIUM CHLORIDE 10 MEQ TABLET.ER PO ONE (06:09)
[2020-11-19] MEDS ORDERED: TRAMADOL HCL 50 MG TABLET PO ONE (06:10)
[2020-11-19 06:52] VITALS: BP 117/57
== END 2020-11-19 07:53 | disposition home health service (06) ==
LOC: ER 20:45
DX: E87.6 Hypokalemia (principal); G89.4 Chronic pain syndrome; R41.82 Altered mental status, unspecified; R53.1 Weakness; E78.00 Pure hypercholesterolemia, unspecified; I10 Essential (primary) hypertension; Z66 Do not resuscitate; Z88.0 Allergy status to penicillin; Z87.442 Personal history of urinary calculi
CPT/HCPCS: 99285; 36415; 87086; 83605; 85025; 87088; 80053; 81001; 71045; 70450; A9270 ×3